=== PATIENT | female | born 1980 | race Caucasian/White ===

== ENCOUNTER 2017-03-28 09:00 | Emergency (ER) | payer BC, SELFPAY ==
[2017-03-28 09:17] VITALS: BP 102/62; PULSE 86; RESP 18; TEMP 36.9; O2SAT 97; BMI 48.0
--- NOTE | 2017-03-28 09:20 | HMH.EDUTC ---
[facility] UTC Disposition Clinical Impression: Influenza-like illness Disposition: Home, Self-Care Condition on Discharge: Good Instructions: DI for Influenza -- Adult Additional Instructions: * No sign of a bacterial infection on exam. As we discussed, could be the start of sinusitis versus the onset of the flu or other viral illness on top of what you already had going on. The upper resp panel will help us determine this. I will call you will results in approx 2 hours. I don't have a problem prescribing an antibiotic just in case . We will discuss rather or not to take it once I call you with results. * Discussed risks and possible benefits of tamiflu. Patient prefers not to take tamiflu. * Call meat products demonstrator today with lab results. They will tell you how much they want you to adjust your medications while sick. * Lots of rest * Increase fluids, water, gatorade, powerade, pedialyte if /toddler/child * Monitor Temp. Tylenol every 4 hours as needed no more then 5 times a day or 4000mg in 24 hours and/or ibuprofen every 6 hours as needed no more then 3200mg in 24 hours (as long as your primary care doctor has told you that it is ok to take both) for fever/aches/pain. ER if fever no less than 101 despite tylenol and Ibuprofen * Bromfed may cause drowsiness. Know how it effects you (or your child) before driving, caring for small children, or sending your child to school. No other antihistamines/allergy medications while taking bromfed. No otc cold/sinus/flu medications while taking bromfed as they have similiar ingredients * If this is the flu, You (or your child) are contagious until no fever, aches, chills x 24 hours without medication for symptoms. * Follow [facility] with [facility], [facility] or ER immediately for new or worsening symptoms or improvement as we discussed or improvement then suddenly get worse again. BE SURE to call meat products demonstrator today. Prescriptions: Amoxicillin [Amoxicillin 875MG Tab] 875 mg PO Q12H #20 tab Brompheniramine/Pseudoephed/Dm [Bromfed DM Cough Syrup 5mL] 10 ml PO QID PRN #240 ml PRN Reason: Cough Time of Disposition: 09:57 Medical Decision Making Vital Signs: 03/28/17 09:17 Temperature 98.5 F Temperature Source Oral Pulse Rate [Right Radial] 86 Respiratory Rate 18 Blood Pressure [Left Arm] 102/62 Blood Pressure Mean [Left Arm] 75 Blood Pressure Source [Left Arm] Automatic Cuff Blood Pressure Position [Left Arm] Sitting 02 Sat by Pulse Oximetry 97 Oxygen Delivery Method Room Air - Lab Data Lab results reviewed: Yes: I reviewed the patient's lab results. Lab Results 03/28/17 09:18: Influenza Type A Ag Negative, Influenza Type B Ag Negative Orders (Tests/Meds): ORDERS Category Date Time Status Upper Respiratory Panel, PCR Stat Lab 03/28/17 09:46 Ordered - Tano Inquiry Pt receiving controlled substance: No [facility] [place]PI - General Stated complaint: poss flu Time Seen by Provider: 03/28/17 09:20 Mode of Arrival: Family Vehicle Source of Information: Patient Limitations: No Limitations Description of Symptoms (Recalled from Triage Doc. by RN): flu like symptoms with fever this am. tylenol taken at 0730. HEENT Symptoms (Recalled from RN notes): No Resp Symptoms (Recalled from RN notes): Yes (flu like symptoms) Skin Symptoms (Recalled from RN notes): No MS Symptoms (Recalled from RN notes): No Functional Status (Recalled from RN notes): na - History of Present Illness Provider Complaint: Here w/ mom c/o we know this is the flu . Fever this morning w/ bodyaches, chills, cough. Started w/ rhinorrhea and cough one week ago. Just mild. Like a cold. Didn't think much of it. Suddenly last night, feeling achy. Woke this morning w/ fever, chills, weakness. Has not had flu vaccine. 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 Motrin helps. Last dose this morning. Tussin DM hasn't helped. 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
[2017-03-28 09:27] LABS: UTC Influenza A Antigen Negative (Negative); UTC Influenza B Antigen Negative (Negative)
--- NOTE | 2017-03-28 09:46 | ED_ITS ---
[facility] UTC Disposition Clinical Impression: Influenza-like illness Disposition: Home, Self-Care Condition on Discharge: Good Instructions: DI for Influenza -- Adult Additional Instructions: * No sign of a bacterial infection on exam. As we discussed, could be the start of sinusitis versus the onset of the flu or other viral illness on top of what you already had going on. The upper resp panel will help us determine this. I will call you will results in approx 2 hours. I don't have a problem prescribing an antibiotic just in case . We will discuss rather or not to take it once I call you with results. * Discussed risks and possible benefits of tamiflu. Patient prefers not to take tamiflu. * Call tool grinding machine operator today with lab results. They will tell you how much they want you to adjust your medications while sick. * Lots of rest * Increase fluids, water, gatorade, powerade, pedialyte if /toddler/child * Monitor Temp. Tylenol every 4 hours as needed no more then 5 times a day or 4000mg in 24 hours and/or ibuprofen every 6 hours as needed no more then 3200mg in 24 hours (as long as your primary care doctor has told you that it is ok to take both) for fever/aches/pain. ER if fever no less than 101 despite tylenol and Ibuprofen * Bromfed may cause drowsiness. Know how it effects you (or your child) before driving, caring for small children, or sending your child to school. No other antihistamines/allergy medications while taking bromfed. No otc cold/sinus/flu medications while taking bromfed as they have similiar ingredients * If this is the flu, You (or your child) are contagious until no fever, aches, chills x 24 hours without medication for symptoms. * Follow up with primary care, [facility] or ER immediately for new or worsening symptoms or improvement as we discussed or improvement then suddenly get worse again. BE SURE to call tool grinding machine operator today. Prescriptions: Amoxicillin [Amoxicillin 875MG Tab] 875 mg PO Q12H #20 tab Brompheniramine/Pseudoephed/Dm [Bromfed DM Cough Syrup 5mL] 10 ml PO QID PRN # 240 ml PRN Reason: Cough Time of Disposition: 09:57 Medical Decision Making Vital Signs: 03/28/17 09:17 Temperature 98.5 F Temperature Source Oral Pulse Rate [Right Radial] 86 Respiratory Rate 18 Blood Pressure [Left Arm] 102/62 Blood Pressure Mean [Left Arm] 75 Blood Pressure Source [Left Arm] Automatic Cuff Blood Pressure Position [Left Arm] Sitting 02 Sat by Pulse Oximetry 97 Oxygen Delivery Method Room Air - Lab Data Lab results reviewed: Yes: I reviewed the patient's lab results. Lab Results 03/28/17 09:18: Influenza Type A Ag Negative, Influenza Type B Ag Negative Orders (Tests/Meds): ORDERS Category Date Time Status Upper Respiratory Panel, PCR Stat Lab 03/28/17 09:46 Ordered - Tano Inquiry Pt receiving controlled substance: No [facility] [place] - General Stated complaint: poss flu Time Seen by Provider: 03/28/17 09:20 Mode of Arrival: Family Vehicle Source of Information: Patient Limitations: No Limitations Description of Symptoms (Recalled from Triage Doc. by RN): flu like symptoms with fever this am. tylenol taken at 0730. HEENT Symptoms (Recalled from RN notes): No Resp Symptoms (Recalled from RN notes): Yes (flu like symptoms) Skin Symptoms (Recalled from RN notes): No MS Symptoms (Recalled from RN notes): No Functional Status (Recalled from RN notes): na - History of Present Illness Provider Complaint: Here w/ mom
[2017-03-28 10:02] LABS: Adenovirus,PCR Not Detected (NotDetected); Bordetella Pertussis Not Detected (NotDetected); Chlamydophila Pneumoniae, PCR Not Detected (NotDetected); Coronavirus 229E Not Detected (NotDetected); Coronavirus NL63 Not Detected (NotDetected); Coronavirus OC43 Not Detected (NotDetected); Coronovirus HKU1,PCR Not Detected (NotDetected); Human Metapneumovirus Not Detected (NotDetected); Influenza A, PCR Not Detected (NotDetected); Influenza AH1, 2009 Not Detected (NotDetected); Influenza AH1, PCR Not Detected (NotDetected); Influenza AH3,PCR Not Detected (NotDetected); Mycoplasma Pneumoniae, PCR Not Detected (NotDected); Parainfluenza 1, PCR Not Detected (NotDetected); Parainfluenza 2, PCR Not Detected (NotDetected); Parainfluenza 3, PCR Not Detected (NotDetected); Parainfluenza 4, PCR Not Detected (NotDetected); Respiratory Syncytial Virus Not Detected (NotDetected); Rhinovirus/Enterovirus Not Detected (NotDetected)
[2017-03-28 11:17] LABS: Influenza B, PCR Detected (NotDetected)
== END 2017-03-28 10:02 | disposition home or self-care (01) ==
PROVIDERS: Emergency Provider Nurse Practitioner Family
DX: J10.1 Influenza due to other identified influenza virus with other respiratory manifestations (principal); Z88.2 Allergy status to sulfonamides
CPT/HCPCS: 87486; 87581; 87633; 87798; 87804; 99202

== ENCOUNTER → 2018-12-24 10:05 | Outpatient (CLI) | payer BC, SELFPAY ==
[2018-12-24 10:39] LABS: Basophils # 0.1 K/mm3 (0-0.2); Basophils % 0.5 % (0.1-2.0); Eosinophils # 0.1 K/mm3 (0.0-0.4); Eosinophils % 1.4 % (0.1-12.0); Hematocrit 40.9 % (37.0-47.0); Hemoglobin 12.4 g/dL (12.2-16.2); Lymphocytes # 2.3 K/mm3 (0.7-4.5); Mean Corpuscular HGB Conc 30.4 g/dL (31.8-35.4); Mean Corpuscular Hemoglobin 23.5 pg (27.0-31.2); Mean Corpuscular Volume 77.2 fl (81-99); Mean Platelet Volume 7.3 fl (7.4-10.4); Monocytes # 0.7 K/mm3 (0.1-1.0); Monocytes % 7.8 % (1.7-9.3); Neutrophils % 65.2 % (37.0-80.0); Platelet Count 385 K/mm3 (142-424); Red Cell Distribution Width 15.7 % (11.5-17.5); White Blood Count 9.1 K/mm3 (4.8-10.8)
[2018-12-24 21:20] LABS: Alanine Aminotransferase 13 U/L (12-78); Albumin Level 3.4 gm/dL (3.4-5.0); Alkaline Phosphatase 60 U/L (46-116); Anion Gap 14.4 mEq/L (5-15); Aspartate Amino Transferase 8 U/L (15-37); Bilirubin,Total 0.3 mg/dL (0.2-1.0); Blood Urea Nitrogen 14 mg/dL (7-18); Calcium 8.3 mg/dL (8.5-10.1); Carbon Dioxide 23 mmol/L (21.0-32.0); Chloride 105 mmol/L (98-107); Chol/HDL Ratio 4.9 (1-3.5); Cholesterol 158 mg/dL (140-200); Creatinine,Serum 0.67 mg/dL (0.55-1.02); Estimated Glomerular Filt Rate 100 ml/min (>60); GFR (African American) 121 ML/MIN (>60); Globulin 3.4 gm/dl (1.3-3.2); Glucose 81 mg/dL (74-106); HDL Cholesterol 32 mg/dL (29-89); LDL Cholesterol 87 mg/dL (0-130); Potassium 4.4 mmoL/L (3.5-5.1); Sodium 138 mmol/L (136-145); Total Protein,Serum 6.8 gm/dL (6.4-8.2); Triglycerides 195 mg/dL (30-200); VLDL Cholesterol 39 mg/dL (0-40)
[2018-12-25 17:11] LABS: Vitamin D 25 Hydroxy 17.5 ng/mL (30.0-100.0)
== END ==
PROVIDERS: Visit Provider Emergency Medicine
DX: Z13.220 Encounter for screening for lipoid disorders (principal); E25.9 Adrenogenital disorder, unspecified; E55.9 Vitamin D deficiency, unspecified
CPT/HCPCS: 36415; 80053; 80061; 82652; 85025

== ENCOUNTER → 2018-12-29 09:11 | Outpatient (CLI) | payer BC, SELFPAY ==
--- NOTE | 2018-12-29 09:13 | XR_ITS ---
PROCEDURE: XR DEXA AXIAL SKELETON CLINICAL HISTORY: CONGENITAL ADRENAL HYPERPLASIA COMPARISON: No exams were available for comparison FINDINGS: L1-L4 density is 1.112 grams/centimeters sq with T-score -0.6. Mean hip density is 1.180 grams/centimeter sq with a T-score of 1.0 IMPRESSION: Normal bone density with low fracture risk. Suggest follow-up exam December 2020 Dictated by: Moy James MD 12/29/2018 11:24 Electronically signed by Moy James MD in [place] 12/29/2018 18:24
== END ==
PROVIDERS: PCP Physician Assistant; Visit Provider Emergency Medicine
DX: E25.9 Adrenogenital disorder, unspecified (principal)
CPT/HCPCS: 77080

== ENCOUNTER → 2019-12-30 11:23 | Outpatient (CLI) | payer BC, SELFPAY | PROVIDERS: PCP Physician Assistant; Visit Provider Family Medicine | DX: Z03.818 Encounter for observation for suspected exposure to other biological agents ruled out (principal) | CPT/HCPCS: U0003 ==

== ENCOUNTER 2020-02-15 11:48 | Emergency (ER) | payer BC, SELFPAY ==
[2020-02-15 12:42] VITALS: BP 149/98; PULSE 91; RESP 19; TEMP 36.9; O2SAT 99; BMI 46.7
[2020-02-15 12:45] VITALS: BP 149/98; PULSE 91; RESP 19; TEMP 36.9; O2SAT 99
--- NOTE | 2020-02-15 12:48 | HMH.EDUTC ---
[facility] [place] Disposition Clinical Impression: Encounter for laboratory testing for COVID-19 virus Disposition: Home, Self-Care Condition on Discharge: Good Instructions: Nausea and Vomiting-Adult, Diarrhea, Preventing the Spread of Coronavirus Discharge Instructions Additional Instructions: *Monitor Temp, Over the counter Motrin or Tylenol as directed/as needed Tylenol every 4 hours and Motrin every 6 hours (as long as your family doctor has told you that you can take it) for fever or pain. and straight to ER if unable to lower temp less than 101.0 after medication given *Warm salt water gargles may help to soothe the throat *Throat Lozenges *Warm fluids like tea with honey may help to soothe the throat *Sleep elevated *Humidifier/Vaporizer Follow up IMMEDIATELY for new or worsening symptoms or no Noticeable improvement over the next 48-72 hours. 911 for difficulty breathing or swallowing You were tested for today for COVID19 your test result should be back in the next 24-48 hours, you may call to the [facility] to see if your test results are back in the next 48 hours [phone] [facility] hours are 9am-9pm You was given a handout with instructions for Self Quarantine and Self isolation for while you wait on test results and what to do if they are positive If you are positive the Health Dept will be contacting you also Prescriptions: Ondansetron [Zofran 4mg ODT] 4 mg PO TIDP PRN #6 tab PRN Reason: Nausea Transmission Status: Pending to [facility] Referrals: Francesca Linares PA [Primary Care Provider] - As needed Forms: Work/School Release Time of Disposition: 12:52 Medical Decision Making - Tano Inquiry Pt receiving controlled substance: No Tano was queried for this patient: No Vital Signs: 02/15/20 12:42 02/15/20 12:45 Temperature 98.4 F 98.4 F Temperature Source Oral Pulse Rate 91 H Pulse Rate [Left] 91 H Respiratory Rate 19 19 Blood Pressure 149/98 H Blood Pressure [Right Arm] 149/98 H Blood Pressure Mean [Right Arm] 115 Blood Pressure Source [Right Arm] Automatic Cuff Blood Pressure Position [Right Arm] Sitting 02 Sat by Pulse Oximetry 99 Oxygen Delivery Method Room Air Orders (Tests/Meds): ORDERS Category Date Time Status Covid-19 Nasal PCR Sendout [place] Stat Lab 02/15/20 12:39 Ordered [facility] [place] HPI - General Stated complaint: vomiting,diarrhea,covid test Time Seen by Provider: 02/15/20 12:48 Mode of Arrival: Ambulatory Source of Information: Patient Limitations: No Limitations Description of Symptoms (Recalled from Triage Doc. by RN): Covid testing symptomatic-vomiting, diarrhea HEENT Symptoms (Recalled from RN notes): No Resp Symptoms (Recalled from RN notes): No Skin Symptoms (Recalled from RN notes): No MS Symptoms (Recalled from RN notes): No Functional Status (Recalled from RN notes): wnl - History of Present Illness Provider Complaint: Patient state that yesterday she had some nausea and vomiting but no nausea and vomiting since yesterday evening and this morning she had some diarrhea so her work wanted her to get tested before she can come back to work - Related Data Home Medications Medication Instructions Recorded Confirmed Fludrocortisone Acetate [Florinef 0.1 mg PO DAILY 03/28/17 07/23/17 0.1mg tablet] Hydrocortisone 10 mg PO DAILY 03/28/17 07/23/17 Omeprazole Magnesium [Prilosec Otc 20 mg PO DAILY 07/23/17 07/23/17 20mg Tab] Previous Rx's Medication Instructions Recorded Cyclobenzaprine HCl [Flexeril 10mg 10 mg PO TID PRN 2 Days #6 tab 09/14/17 tablet] Ciprofloxacin HCl [Ciprofloxacin 500 mg PO BID #20 tab 04/20/18 500mg Tab] Ondansetron [Zofran 4mg ODT] 4 mg PO TIDP PRN #10 tab.rapdis 04/20/18 Oxycodone HCl/Acetaminophen 1 tab PO Q6HP PRN #20 tab 04/20/18 [Percocet 5/325mg tablet] Ondansetron [Zofran 4mg ODT] 4 mg PO TIDP PRN #6 tab 02/15/20 Allergies Allergy/AdvReac Type Severity Reaction Status Date / Ti
[2020-02-17 03:11] LABS: Covid-19 Nasal PCR Sendout Lex NOT DETECTED
== END 2020-02-15 12:56 | disposition home or self-care (01) ==
PROVIDERS: Emergency Provider Nurse Practitioner; PCP Physician Assistant
DX: Z20.828 Contact with and (suspected) exposure to other viral communicable diseases (principal); R11.10 Vomiting, unspecified; M54.5 Low back pain
CPT/HCPCS: 99201; U0004

== ENCOUNTER → 2021-03-29 10:51 | Outpatient (CLI) | payer BC, SELFPAY | PROVIDERS: Visit Provider Nurse Practitioner | DX: Z20.822 Contact with and (suspected) exposure to COVID-19 (principal) | CPT/HCPCS: C9803; U0003; U0005 ==

== ENCOUNTER → 2021-06-23 08:49 | Outpatient (CLI) | payer BC, SELFPAY ==
[2021-06-23 09:41] LABS: Basophils # 0.1 K/mm3 (0-0.2); Basophils % 1.4 % (0.1-2.0); Eosinophils # 0.2 K/mm3 (0.0-0.4); Eosinophils % 1.9 % (0.1-12.0); Hematocrit 40.9 % (37.0-47.0); Lymphocytes # 3.1 K/mm3 (0.7-4.5); Lymphocytes % 36.7 % (10-50); Mean Corpuscular HGB Conc 31.8 g/dL (31.8-35.4); Mean Corpuscular Hemoglobin 24.3 pg (27.0-31.2); Mean Corpuscular Volume 76.4 fl (81-99); Mean Platelet Volume 7.6 fl (7.4-10.4); Monocytes # 0.6 K/mm3 (0.1-1.0); Monocytes % 7.3 % (1.7-9.3); Neutrophils # 4.5 K/mm3 (1.8-7.8); Neutrophils % 52.6 % (37.0-80.0); Platelet Count 401 K/mm3 (142-424); Red Blood Count 5.35 M/mm3 (4.20-5.40); Red Cell Distribution Width 15.7 % (11.5-17.5); White Blood Count 8.5 K/mm3 (4.8-10.8)
[2021-06-23 10:18] LABS: Alanine Aminotransferase 21 U/L (12-78); Albumin Level 3.7 g/dl (3.5-5.0); Albumin/Globulin Ratio 1.4 (1.1-1.8); Alkaline Phosphatase 57 U/L (38-126); Anion Gap 11.2 mEq/L (5-15); Aspartate Amino Transferase 22 U/L (14-36); Bilirubin,Total 0.7 mg/dl (0.2-1.3); Blood Urea Nitrogen 11 mg/dl (7-17); Calcium 8.6 mg/dl (8.4-10.2); Carbon Dioxide 22 mmol/L (22.0-30.0); Chloride 108 mmol/L (98-107); Estimated Glomerular Filt Rate 111 ml/min (>60); GFR (African American) 135 ML/MIN (>60); Globulin 2.7 g/dL (1.3-3.2); Glucose 84 mg/dl (74-100); Potassium 4.2 mmoL/L (3.5-5.1); Sodium 137 mmol/L (136-145); Total Protein,Serum 6.4 g/dl (6.3-8.2)
[2021-07-05 04:22] LABS: Testosterone, Total, LC/MS 70.6 ng/dL (10.0-55.0)
[2021-07-06 17:11] LABS: Renin Activity, Plasma 1.595 ng/mL/hr (0.167-5.380)
== END ==
DX: E25.0 Congenital adrenogenital disorders associated with enzyme deficiency (principal)
CPT/HCPCS: 36415; 80053; 84244; 84403; 85025

== ENCOUNTER 2021-11-04 01:18 | Emergency (ER) | payer BC, SELFPAY ==
[2021-11-04 01:30] VITALS: BMI 56.6
--- NOTE | 2021-11-04 01:31 | CT_ITS ---
PROCEDURE INFORMATION: Exam: CT Abdomen And Pelvis Without Contrast Exam date and time: 11/04/2021 2:03 AM Age: 41 years old Clinical indication: Abdominal pain; Flank; Left; Additional info: Left flank pain TECHNIQUE: Imaging protocol: Computed tomography of the abdomen and pelvis without contrast. Radiation optimization: All CT scans at this facility use at least one of these dose optimization techniques: automated exposure control; mA and/or kV adjustment per patient size (includes targeted exams where dose is matched to clinical indication); or iterative reconstruction. COMPARISON: ABDPELW CT abdomen pelvis w con 04/20/2018 5:19 AM FINDINGS: Lungs: The visualized lung bases are clear. Pleural spaces: There are no pleural effusions. Heart: The visualized portions of the heart are unremarkable. No significant pericardial effusions. Liver: Evaluation of the liver is limited without contrast but the liver is within normal limits for this noncontrast study. Gallbladder and bile ducts: There has been a cholecystectomy. Pancreas: The pancreas is normal. Spleen: The spleen is normal. An accessory splenule is present. Adrenal glands: The adrenal glands are normal. Kidneys and ureters: The right kidney is normal. There is mild left hydronephrosis. There is mild inflammatory left perinephric stranding. There is a proximal left ureteral calcification measuring approximately 3.5 mm resulting in mild left hydronephrosis. Stomach and bowel: The stomach is normal. The duodenum is unremarkable. Unopacified loops of small bowel are within range of normal. Lack of gastrointestinal contrast limits evaluation of bowel. The colon is normal. Appendix: A normal appendix is identified. Intraperitoneal space: No evidence of intraperitoneal free air. No significant free fluid. Vasculature: No abdominal aortic aneurysm. Lymph nodes: There is no evidence of pathologic adenopathy. Urinary bladder: The bladder is decompressed. Reproductive: The uterus is normal. The left ovary is normal. The right ovary is normal. Bones/joints: The thoracolumbar spine demonstrates mild degenerative changes this is most noted involving the facet joints of the lower lumbosacral spine.. There is no evidence of acute fracture. Soft tissues: There is a small to moderate fat-containing umbilical hernia measuring 6.8 x 2.8 by 3.9 cm. Other findings: Evaluation is limited by the lack of intravenous contrast. IMPRESSION: Proximal left ureteral stone measuring approximately 3.5 mm resulting in mild hydronephrosis and perinephric fat stranding. Small to moderate fat-containing umbilical hernia.
[2021-11-04 01:32] VITALS: BP 146/87; PULSE 89; RESP 16; TEMP 36.7; O2SAT 97; BMI 51.3
[2021-11-04 01:46] LABS: Microscopic, Urine URINE MICROSCOPIC (MICROSCOPIC)
[2021-11-04 01:47] LABS: Appearance,Urine CLOUDY (Clear); Bilirubin,Urine Negative (Negative); Blood, Urine 2+ (Negative); Color,Urine YELLOW (Yellow); Glucose,Urine (UA) Negative (Negative); Ketones,Urine 1+ (Negative); Leukocyte Esterase,Urine 2+ (Negative); Nitrate,Urine Negative (Negative); Protein,Urine TRACE (Negative); Specific Gravity, Urine >= 1.030 (1.005-1.030); Urobilinogen,Urine 0.2 EU/dl (0.2)
[2021-11-04 01:53] LABS: Amorphous Sediment,Urine 1+ /lpf; Mucus,Urine Trace /lpf; Urine Pregnancy, HCG Qual. Negative (Negative)
[2021-11-04 02:00] LABS: Basophils % 0.3 % (0.1-2.0); Eosinophils # 0.1 K/mm3 (0.0-0.4); Eosinophils % 0.8 % (0.1-12.0); Hematocrit 41.3 % (37.0-47.0); Hemoglobin 12.9 g/dL (12.2-16.2); Lymphocytes % 6.4 % (10-50); Mean Corpuscular HGB Conc 31.1 g/dL (31.8-35.4); Mean Corpuscular Hemoglobin 23.8 pg (27.0-31.2); Mean Corpuscular Volume 76.5 fl (81-99); Mean Platelet Volume 8.4 fl (7.4-10.4); Monocytes # 0.3 K/mm3 (0.1-1.0); Monocytes % 2.1 % (1.7-9.3); Neutrophils # 14.3 K/mm3 (1.8-7.8); Neutrophils % 90.4 % (37.0-80.0); Platelet Count 460 K/mm3 (142-424); Red Blood Count 5.39 M/mm3 (4.20-5.40); Red Cell Distribution Width 16.1 % (11.5-17.5); White Blood Count 15.8 K/mm3 (4.8-10.8)
[2021-11-04 02:04] LABS: MANUAL DIFFERENTIAL MANUAL DIFFERENTIAL (MANUAL DIFF)
[2021-11-04 02:34] LABS: Anisocytosis 1+; Hypochromasia 3+; Lymphocytes % 7 % (10-50); Microcytosis 2+; Monocytes % 1 % (2-9); Neutrophils % 86 % (42-76); Platelet Estimate Slight Increase; Total Cells Counted 100
[2021-11-04 02:38] LABS: Alanine Aminotransferase 23 U/L (12-78); Albumin/Globulin Ratio 1.2 (1.1-1.8); Alkaline Phosphatase 77 U/L (38-126); Amylase 55 U/L (30-110); Anion Gap 13.3 mEq/L (5-15); Aspartate Amino Transferase 35 U/L (14-36); Bilirubin,Total 0.9 mg/dl (0.2-1.3); Blood Urea Nitrogen 9 mg/dl (7-17); Calcium 8.6 mg/dl (8.4-10.2); Carbon Dioxide 21 mmol/L (22.0-30.0); Chloride 106 mmol/L (98-107); Creatinine Clearance Estimated 78 mL/min (50-200); Estimated Glomerular Filt Rate 80 ml/min (>60); GFR (African American) 97 ML/MIN (>60); Globulin 3.4 g/dL (1.3-3.2); Glucose 125 mg/dl (74-100); Lipase 34 U/L (23-300); Potassium 4.3 mmoL/L (3.5-5.1); Sodium 136 mmol/L (136-145); Total Protein,Serum 7.4 g/dl (6.3-8.2)
[2021-11-04 02:48] LABS: Erythrocyte Sedimentation Rate 12 mm/hr (0-20)
[2021-11-04 02:57] LABS: Procalcitonin 0.044 ng/mL (0.0-2.0)
[2021-11-04 03:00] VITALS: BP 152/77; PULSE 71; O2SAT 97
[2021-11-04 03:30] VITALS: BP 140/80; PULSE 67; O2SAT 96
--- NOTE | 2021-11-04 03:33 | PC.NURSE ---
Rechecked pt condition. No needs or complaints at this time.
[2021-11-04 03:53] VITALS: BP 140/80; PULSE 80; RESP 17; TEMP 36.7; O2SAT 98
--- NOTE | 2021-11-04 04:19 | HMH.EDGENADL ---
Discharge Plan Disposition Patient Disposition: Home, Self-Care Chief Complaint: Abdominal Pain Prescriptions Prescriptions: New tamsulosin [Flomax] 0.4 mg capsule 0.4 mg PO DAILY Qty: 10 0RF levofloxacin 500 mg tablet 500 mg PO DAILY Qty: 7 0RF No Action hydrocortisone 10 MG tablet 10 mg PO DAILY Label Comments: fludrocortisone 0.1 MG tablet 0.1 mg PO DAILY omeprazole magnesium [Prilosec OTC] 20 MG tablet,delayed release (DR/EC) 20 mg PO DAILY oxycodone-acetaminophen 1 EACH tablet 1 tab PO Q6HP PRN (Reason: Moderate To Severe Pain) Qty: 20 0RF Referrals Referrals: Francesca Linares PA [Primary Care Provider] - Enter time for follow up Clinical Impressions Clinical Impression: Renal colic on left side, UTI (urinary tract infection) Instructions Patient Instructions: DI for Kidney Stones Discharge ED Provider: Owen Bustillo General Adult HPI General Chief complaint: Abdominal Pain Stated complaint: left side pain radiating to back Time Seen by Provider: 11/04/21 04:21 Mode of Arrival: Ambulatory Source of Information: Patient and Medical Record Limitations: No Limitations Description of Symptoms (Recalled from ER Triage Doc. by RN): LEFT FLANK PAIN - SUDDEN ONSET- INTERMITT- BEGAN YESTERDAY AND PAIN IS WORSE NOW History of Present Illness HPI narrative: lt flank pain with hx of kidney stones Onset (ago): day(s) Location: abdomen Radiation: flank Severity: moderate Consistency: intermittent Associated symptoms: denies other symptoms Treatments prior to arrival: none Related Data Home Medications Medication Instructions Recorded Confirmed fludrocortisone 0.1 mg tablet 0.1 mg PO DAILY cortisone 03/28/17 11/04/21 supplement hydrocortisone 10 mg tablet 10 mg PO DAILY cortisone supplement 03/28/17 11/04/21 omeprazole magnesium 20 mg 20 mg PO DAILY GERD 07/23/17 11/04/21 tablet,delayed release (Prilosec OTC) Previous Rx's Medication Instructions Recorded oxycodone-acetaminophen 5 mg-325 1 tab PO Q6HP PRN Moderate To 04/20/18 mg tablet Severe Pain #20 tabs levofloxacin 500 mg tablet 500 mg PO DAILY #7 tabs 11/04/21 tamsulosin 0.4 mg capsule (Flomax) 0.4 mg PO DAILY #10 caps 11/04/21 Allergies Allergy/AdvReac Type Severity Reaction Status Date / Time Sulfa (Sulfonamide Allergy Mild Rash Verified 02/15/20 12:45 Antibiotics) PFSH PFSH 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 Smoking Status: Never smoker second hand exposure: No alcohol intake: never current occupational status: other ROS Obtained: Yes All systems reviewed & no additional complaints except as documented Physical Exam General General appearance: alert Head Head exam: normocephalic Eye Eye exam: Present PERRL and EOMI ENT ENT exam: Present normal oropharynx Neck Neck exam: Present full ROM Respiratory Respiratory exam: Present normal lung sounds bilaterally Cardiovascular Cardiovascular exam: Present regular rate Abdominal Exam Abdominal exam: Present soft Extremities Exam Extremities exam: Present full ROM Back Exam Back exam: Absent CVA tenderness (L) Neurological Exam Neurological exam: Present alert, oriented X3 and CN II-XII intact Psychiatric Psychiatric exam: Present normal affect Skin Skin exam: Present intact Medical Decision Making Medical Records Medical records reviewed: Yes I reviewed the patient's medical records. Tano Inquiry Pt receiving controlled substance: No Vital Signs: 11/04/21 01:32 11/04/21 03:00 11/04/21 03:30 Temperature 98.1 F Temperature Source Oral Pulse Rate 71 67 Pulse Rate [Left Radial] 89 Respiratory Rate 16 Blood Pressure 152/77 H 140/80 Blood Pressure [Right Arm] 146/87 H Blood Pressure Mean [Right Arm] 106 Blood Pressure Source [Right Arm] Automatic Cuff Blood Pressure Position [Right Arm] Sitting 02 Sat by Pulse Oximetry 97 97 96 Oxygen Delivery Method Room Air Room Air Room Air 11/04
== END 2021-11-04 04:35 | disposition home or self-care (01) ==
PROVIDERS: Emergency Provider Emergency Medicine; PCP Physician Assistant
DX: N20.0 Calculus of kidney (principal); N39.0 Urinary tract infection, site not specified; Z79.899 Other long term (current) drug therapy; Z88.2 Allergy status to sulfonamides
CPT/HCPCS: 74176; 80053; 81001; 81025; 82150; 83690; 84145; 85007; 85025; 85651; 86140; 87086; 96365; 96367; 96375; 99284; J0696; J2405

== ENCOUNTER 2022-05-12 08:53 | Emergency (ER) | payer BC, SELFPAY ==
[2022-05-12 09:10] VITALS: BP 148/99; PULSE 99; RESP 12; TEMP 36.7; O2SAT 100; BMI 50.6
[2022-05-12 09:20] VITALS: BP 148/99; PULSE 99; RESP 12; TEMP 36.7; O2SAT 100
--- NOTE | 2022-05-12 09:21 | EXP.UTC ---
Discharge Plan Disposition Patient Disposition: Home, Self-Care Condition: Good Prescriptions Prescriptions: New azithromycin [azithromycin] 250 mg tablet 250 mg PO DIRECTED Qty: 6 0RF Rx Instructions: Take two (2) tablets on day #1, then one (1) tablet day #2 thru #5 fluticasone propionate [fluticasone propionate] 50 mcg/actuation spray,suspension 1 spray intranasal DAILY Qty: 9.9 0RF No Action hydrocortisone 10 MG tablet 10 mg PO DAILY Label Comments: fludrocortisone 0.1 MG tablet 0.1 mg PO DAILY omeprazole magnesium [Prilosec OTC] 20 MG tablet,delayed release (DR/EC) 20 mg PO DAILY Referrals Follow up/Referrals: Francesca Linares PA [Primary Care Provider] - See instructions Activity Restrictions/Add. Instructions Additional Instructions/Restrictions: Start antibiotic patient to take as ordered for a full length of time even if you feel better. Sinus infections do not get better overnight. It may take 2-3 days to notice much improvement so be sure to use conservative measures as discussed for symptoms. Flonase 1 spray each nostril daily to help with nasal congestion, sinus and ear pressure/information Increase fluids Humidifier/vaporizer as needed Tylenol and ibuprofen as needed for fever or pain. If symptoms do not improve or get worse return or be seen in the ER Follow-up with primary care this week Clinical Impressions Clinical Impression: Acute maxillary sinusitis Instructions Patient Instructions: DI for Sinusitis Discharge ED Provider: Henry ([facility])[place] [facility] General Stated complaint: Congestion cough headache Mode of Arrival: Ambulatory Source of Information: Patient Limitations: No Limitations Time Seen by Provider: 05/12/22 09:21 Description of Symptoms (Recalled from Triage Doc. by RN): PATIENT C/O SINUS CONGESTION, COUGH, CHEST CONGESTION, AND YELLOW-GREEN SPUTUM X 1 WEEK HEENT Symptoms (Recalled from RN notes): Yes Resp Symptoms (Recalled from RN notes): Yes Skin Symptoms (Recalled from RN notes): No MS Symptoms (Recalled from RN notes): No Functional Status (Recalled from RN notes): WNL History of Present Illness Provider Complaint: 41 yr old female presents for cough,congestion, sinus tenderness, chest congestion and yellow/green sputum for 1 week Related Data Home Medications Medication Instructions Recorded Confirmed fludrocortisone 0.1 mg tablet 0.1 mg PO DAILY CONGENITAL ADRENAL 03/28/17 05/12/22 HYPERPLASIA hydrocortisone 10 mg tablet 10 mg PO DAILY CONGENITAL ADRENAL 03/28/17 05/12/22 HYPERPLASIA omeprazole magnesium 20 mg 20 mg PO DAILY GERD 07/23/17 05/12/22 tablet,delayed release (Prilosec OTC) Previous Rx's Medication Instructions Recorded azithromycin 250 mg tablet 250 mg PO DIRECTED #6 tabs 05/12/22 fluticasone propionate 50 1 spray intranasal DAILY #9.9 mL 05/12/22 mcg/actuation nasal spray,suspension Allergies Allergy/AdvReac Type Severity Reaction Status Date / Time Sulfa (Sulfonamide Allergy Mild Rash Verified 02/15/20 12:45 Antibiotics) Worker's Comp Is this a Worker's Comp case?: No [facility] Disclaimer: The information contained in this section may have been updated after the patient was seen, as this information can be updated by other users. 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 (Reviewed 05/12/22 @ 09:22 by Denice Figueroa ([facility]), [employer]) Smoking Status: Never smoker second hand exposure: No alcohol intake: never current occupational status: other Travel in the last 8 weeks: None ROS Obtained: Yes All systems reviewed & no additional complaints except as documented Constitutional Constitutional: Reports system reviewed and no additional complaints, except as documented and Reports as per HPI Eyes Eyes: Reports system reviewed and no additional complaints, except as documented ENT Ears, Nose, Mouth, and Throat: Reports system reviewed and no additional complaints, except as
== END 2022-05-12 09:29 | disposition home or self-care (01) ==
PROVIDERS: Emergency Provider Nurse Practitioner Family; PCP Physician Assistant
DX: J01.00 Acute maxillary sinusitis, unspecified (principal)
CPT/HCPCS: 99212; 99213; G0463

== ENCOUNTER 2024-02-23 12:26 | Emergency (ER) | payer BC, SELFPAY ==
--- NOTE | 2024-02-23 13:49 | ED_ITS ---
Discharge Plan Disposition Patient Disposition: Home, Self-Care Condition: Good Prescriptions Prescriptions: New benzonatate 100 mg capsule 100 mg PO TIDP PRN (Reason: Cough) Qty: 30 0RF methylprednisolone 4 mg Tablets,Dose Pack 4 mg PO DIRECTED 6 Days Qty: 21 0RF Rx Instructions: Take 1 pack as directed for 6 days amoxicillin-pot clavulanate 875-125 mg Tablet 1 tab PO Q12H Qty: 20 0RF No Action hydrocortisone 10 MG tablet 10 mg PO DAILY Patient Comments: fludrocortisone 0.1 MG tablet 0.1 mg PO DAILY Referrals Follow up/Referrals: Francesca Linares PA [Primary Care Provider] - See instructions Activity Restrictions/Add. Instructions Additional Instructions/Restrictions: Drink plenty of fluids. Take tylenol or ibuprofen for pain or fever. Take the medications as directed. Follow up with your regular doctor. 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 Previous Rx's ?Medication ?Instructions ?Recorded amoxicillin 875 mg-potassium 1 tab PO Q12H #20 tabs 02/23/24 clavulanate 125 mg tablet benzonatate 100 mg capsule 100 mg PO TIDP PRN Cough #30 caps 02/23/24 methylprednisolone 4 mg tablets in 4 mg PO DIRECTED 6 days #21 tabs 02/23/24 a dose pack Allergies Allergy/AdvReac Type Severity Reaction Status Date / Time Sulfa (Sulfonamide Allergy Mild Rash Verified 02/15/20 12:45 Antibiotics) [facility] Disclaimer: The information contained in this section may have been updated after the patient was seen, as this information can be updated by other users. 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: Never smoker second hand exposure: No alcohol intake: never current occupational status: other Travel in the last 8 weeks: None Have you lived/traveled outside [place] in past 30 days?: No Contact w/someone who lives/traveled outside [place] past 30 days?: No Exposure to someone with infectious disease in past 14 days?: No Do you have a fever (greater than 100.4 F or 38 C)?: No Have you tested positive for COVID-19: No Exposed to someone with COVID-19 in past 14 days?: No Do you have a sore throat?: Yes Do you have a cough?: Yes Do you have any weakness?: No Do you have any diarrhea?: No Are you experiencing any unusual bleeding?: No Do you have any muscle aches/pain?: No Do you have any abdominal pain?: No Are you experiencing loss of taste or smell?: No ROS Obtained: Yes All systems reviewed & no additional complaints except as documented Constitutional Constitutional: Reports poor appetite Eyes Eyes: Reports system reviewed and no additional complaints, except as documented ENT Ears, Nose, Mouth, and Throat: Reports as per HPI Cardiovascular Cardiovascular: Reports system reviewed and no additional complaints, except as documented and Denies chest pain Respiratory Respiratory: Denies shortness of breath, Reports chest congestion, Reports cough, Denies stridor and Denies wheezing Gastrointestinal Gastrointestingal: Reports system reviewed and no additional complaints, except as documented; Denies abdominal pain, diarrhea or vomiting Musculoskeletal Musculoskeletal: Reports system reviewed and no additional complaints, except as documented and Denies arthralgias Integumentary/Breasts Skin/Breast: Reports system reviewed and no additional complaints, except as documented and Denies rash Neurologic Neurologic: Denies paresthesias Allergic/Immunologic Allergic/Immunologic: Denies wheezing Physical Exam General General appearance: alert and in no apparent distress Head Head exam: atraumatic, normocephalic and normal inspection Eye Eye exam: Present normal appearance, PERRL and EOMI ENT ENT exam: Present normal exam, normal oropharynx, mucous membranes moist, TM's normal bilaterally and normal external ear exam Neck Neck exam: Present normal inspection, full ROM and trachea midline; Absent meningismus or lymphadenopathy Chest Chest inspection: Present normal inspection and symmetric chest wall rise; Absent tenderness Respiratory Respiratory exam: Present normal lung sounds bilaterally; Absent respiratory distress Cardiovascular Cardiovascular exam: Present regular rate and normal rhythm; Absent JVD Abdominal Exam Abdominal exam: Present soft and normal bowel sounds; Absent distention, tenderness or guarding Extremities Exam Extremities exam: Present normal inspection, full ROM and normal capillary refill; Absent calf tenderness Back Exam Back exam: Present normal inspection; Absent tenderness Neurological Exam Neurological exam: Present alert and oriented X3 Psychiatric Psychiatric exam: Present normal affect and normal mood Skin Skin exam: Present warm, dry, intact and normal color Lymphatic Lymphatic Findings: no adenopathy Medical Decision Making Medical Records Medical records reviewed: No I reviewed the patient's medical records. Screening: Per USPSTF and CDC recommendations, given the prevalence of disease in our region, it is our hospital?s policy to screen for HIV and viral Hepatitis for all patients aged 18 and over and those with ongoing risk factors. [place] Inquiry Pt receiving controlled substance: No Lab Data Lab results reviewed: Yes I reviewed the patient's lab results.
[2024-02-23 13:50] VITALS: BP 138/90; PULSE 84; RESP 20; TEMP 36.6; O2SAT 97; BMI 49.8
[2024-02-23 14:11] LABS: UTC Strep Screen (Rapid) Negative (Negative)
[2024-02-23 14:46] VITALS: BP 138/90; PULSE 84; RESP 20; TEMP 36.6
== END 2024-02-23 14:47 | disposition home or self-care (01) ==
PROVIDERS: Emergency Provider Nurse Practitioner Family; PCP Physician Assistant
DX: J01.90 Acute sinusitis, unspecified (principal); H92.03 Otalgia, bilateral; R09.81 Nasal congestion; R07.0 Pain in throat; R05.9 Cough, unspecified; R63.8 Other symptoms and signs concerning food and fluid intake
CPT/HCPCS: 87880; 99212; G0381